=== PATIENT | female | born 1990 ===

== ENCOUNTER 2017-11-28 08:19 | Day surgery (SDC) | payer MEDICAID ==
[2017-11-22 08:38] VITALS: BMI 30.9
[2017-11-28] MEDS ORDERED: cefTRIAXone IV 1 gm in Dextros 50 ML IVPB ONE (10:47)
[2017-11-28] MEDS ORDERED: Iohexol 240 (50 ml) ONE (11:02)
[2017-11-28] MEDS ORDERED: Lidocaine 2% Jelly (Uro-Jet) ONE (11:49)
--- NOTE | 2017-11-28 12:07 | PCM.SURG1 ---
Surgeon's Initial Post Op Note - Surgeon's Notes Surgeon: Dennis Vasquez [employer] Department Manager: none Type of Anesthesia: General LMA Pre-Operative Diagnosis: R ureteral calculus Operative Findings: same Post-Operative Diagnosis: same Operation Performed: cysto. R ureteroscopy. Laser ureterolithotripsy. Stone basketing. stent insertion Specimen/Specimens Removed: urine, stones Estimated Blood Loss: EBL {In ML}: 0 Blood Products Given: N/A Post-Op Condition: Good Date of Surgery/Procedure: 11/28/17 Time of Surgery/Procedure: 11:55
[2017-11-28] MEDS: HYDROmorphone 0.5 mg/0.5 ml ISec IVP PRN ×2 (12:34→12:35)
[2017-11-28] MEDS ORDERED: Lactated Ringer's 500 ML IV ONE (13:00)
[2017-11-28 13:42] VITALS: RESP 18; TEMP 97.8; O2SAT 99
--- NOTE | 2017-11-28 14:34 | RAD ---
Date of service: 11/28/2017 PROCEDURE: Intraoperative Fluoroscopy. HISTORY: RT. URETER CALCULI FINDINGS: Fluoroscopic assistance was provided. Fluoroscopy time = 13.1 seconds. Radiation dose = 0.57821 mGy-cm. Please refer to the operative report from Dr. SHOOK, [place].
--- NOTE | 2017-11-28 14:36 | RAD ---
Date of service: 11/28/2017 HISTORY: RT. URETER CALCULI COMPARISON: No prior. FINDINGS: BOWEL: Normal. No obstruction however moderate amount stool seen within the cecum and at ascending colon consistent with mild fecal retention. No free air. BONES: Elliptical shaped sclerotic density seen overlying the right superior iliac bone which could represent bone island or osteoma. OTHER FINDINGS: Non in situ right ureteral stent. There is a vague small of radiopaque density overlying the right upper quadrant of the abdomen (over the upper pole right kidney that may represent renal calculus. IMPRESSION: In situ right ureteral stent. Questionable small calculus upper pole right kidney.
[2017-11-28 15:10] VITALS: BP 95/50; PULSE 61
--- NOTE | 2017-11-29 18:34 | OP ---
Copied To: Paola Vasquez MD Attending MD: Paola Vasquez MD UROLOGY OPERATIVE REPORT PROCEDURE DATE: 11/28/2017 PREOPERATIVE DIAGNOSIS: Right ureteral calculus. POSTOPERATIVE DIAGNOSIS: Right ureteral calculus. PROCEDURES: Cystoscopy. Right ureteroscopy. Right ureteral laser lithotripsy. Right ureteral stone basketing. Insertion of right ureteral stent. OPERATING SURGEON: Paola Vasquez MD PROCEDURE FOLLOWS: Graduate Advisor film of the abdomen was obtained. The right ureteral stent was in proper position. There was noted to be a bilobed stone adjacent to the distal ureter below the pelvic brim. The general anesthesia was administered. The patient was placed lithotomy position. Genitalia prepped and draped sterilely. Perioperative antibiotics were administered. A 22-Uzbek cystoscope sheath was introduced with obturator. The urine was sent for bacteriologic examination. The bladder was inspected. The right ureteral stents identified. There was no bladder tumor or stone. The stent was grasped with rigid grasping forceps and brought to the level of the urethral meatus along with cystoscope sheath. A 0.035-inch guidewire was inserted into ureteral stent and passed up to level of the kidney. Ureteroscopy was performed with a 7-Uzbek mini rigid ureteroscope. Ureteroscope was introduced per urethra. Ureteral orifice identified. A second guidewire was advanced into the ureter. Ureteroscope was advanced over the guidewire. This stone was encountered promptly approximately 5 cm above the ureteral orifice. Laser ureteral lithotripsy was performed using the holmium laser and the fiber in the dusting mode. There was noted to be excellent fragmentation. The fragments were removed in-toto using the 2.8-Uzbek wire, flat wire, basket. The stones were removed under direct ureteroscopic control in an atraumatic fashion. The ureteroscope was reintroduced. There were no residual stones. There was no trauma to the ureteral mucosa. A 6-Uzbek multilength stent was inserted over the remaining guidewire. Proper stent position was confirmed with fluoroscopy and endoscopy. A distal suture was left to exit per urethra. Lidocaine jelly were instilled. The suture was placed within the vagina. The patient tolerated the procedure without complication. The patient was returned to supine position. The patient was transferred to recovery room in satisfactory condition. Paola MD [facility] # [id number]
== END 2017-11-28 15:10 | disposition home or self-care (01) ==
LOC: C.SDS 08:19
PROVIDERS: ATTEND Urology
DX: N20.1 Calculus of ureter (principal)
CPT/HCPCS: 52356; 74018; 87086; 88300; J0696; J1170; J7120